=== PATIENT | male | born 1965 ===

== ENCOUNTER 2021-08-15 13:09 | Emergency (ER) | payer MEDICAID, SELFPAY ==
[2021-08-15 13:17] VITALS: BP 138/91; PULSE 82; RESP 18; TEMP 36.3; O2SAT 93; BMI 26.2
--- NOTE | 2021-08-15 13:35 | ECG_ITS ---
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 Measurements Intervals [place] Rate: 77 P: 73 HI: 188 QRS: 4 QRSD: 105 T: 67 QT: 379 QTc: 430 Interpretive Statements SINUS RHYTHM NONSPECIFIC T-WAVE ABNORMALITY No previous ECG available for comparison Electronically Signed On 08-16-2021 17:43:18 INDUSTRY CONSULTANT by Robby Canales M.D. [id number]
[2021-08-15 14:26] LABS: Basophils % 0.2 %; Eosinophils # 0.1 10^3/uL (0.0-0.8); Eosinophils % 0.9 %; Hematocrit 49.7 % (42.0-52.0); Hemoglobin 16.4 g/dL (11.7-16.6); Lymphocytes # 1.7 10^3/uL (0.8-4.8); Lymphocytes % 17.4 %; Mean Corpuscular Hemoglobin 28.6 pg (28.0-34.0); Mean Corpuscular Volume 86.7 fl (80-94); Mean Platelet Volume 9.3 fL (7.4-10.4); Monocytes # 0.7 10^3/uL (0.2-0.9); Monocytes % 6.8 %; Neutrophils # 7.36 10^3/uL (1.8-7.7); Neutrophils % 74.2 %; Nucleated Red Blood Cells % 0 %; Platelet Count 206 10^3/cmm (130-400); Red Blood Count 5.73 10^6/uL (4.1-5.3); Red Cell Distribution Width 12.5 % (12.1-15.1); White Blood Count 9.9 10^3/uL (4.0-10.0)
[2021-08-15 15:03] LABS: Alanine Aminotransferase 35 U/L (0-41); Albumin Level 4.5 g/dL (3.5-5.2); Alkaline Phosphatase 81 IU/L (40-130); Anion Gap 17.8 (5-19); Aspartate Amino Transferase 24 U/L (0-40); Blood Urea Nitrogen 7 mg/dL (6-20); Calcium 8.8 mg/dL (8.5-10.5); Carbon Dioxide 23 mmol/L (22-29); Chloride 100 mmol/L (98-107); Globulin 2.8 g/dL (1.3-4.6); Glomerular Filtration Rate 115.8 mL/min (90-130); Glucose 104 mg/dL (65-115); Osmolality Calculated 282 mOsm/kg (285-295); Potassium 3.8 mmol/L (3.5-5.1); Sodium 137 mmol/L (136-145); Total Bilirubin 0.7 mg/dL (0.15-1.2); Total Protein 7.3 g/dL (6.6-8.7)
[2021-08-15 15:05] LABS: Troponin(5th) Baseline 6 ng/L (0-15)
--- NOTE | 2021-08-15 15:05 | W.ED.WEAKNES ---
Documented by User: ERASMO Garcia 08/15/21 15:06 HPI - Weakness General: Chief complaint: Weakness Stated complaint: groin pain Time Seen by Provider: 08/15/21 18:18 History of Present Illness: HPI Narrative: Patient here for weakness and possible 2 episodes of syncope over this past couple days. I did speak with the son who is his material requisitioner because patient is do not speak [place]. Patient did not appear in acute distress. They were concerned about inguinal hernia which he has. But that is not hurting. Denies any fever chills shortness of breath chest pains. Course Vital Signs: Vital signs: Vital Signs Temperature 97.3 F L 08/15/21 13:17 Pulse Rate 76 08/15/21 20:16 Respiratory Rate 17 08/15/21 19:00 Blood Pressure 145/78 08/15/21 20:16 Pulse Oximetry 98 08/15/21 20:16 MDM - Weakness MDM Narrative: Medical decision making narrative: Brief history and physical exam was performed as part of the triage process. Due to current ED wait time patient will be placed in waiting room until a room becomes available. Explained to patient he/she will be seen in order of severity. Patient is currently safe to wait in the waiting room until we can get them placed. Patient informed that if condition worsens at any time to please let the front desk supervisor know. Lab Data: Labs: Lab Results 08/15/21 08/15/21 08/15/21 13:55 13:55 13:55 WBC 9.9 10^3/uL 10^3/ uL (4.0-10.0) RBC 5.73 10^6/uL H 10 ^6/uL (4.1-5.3) Hgb 16.4 g/dL g/dL (11.7-16.6) Hct 49.7 % % (42.0-52.0) MCV 86.7 fl fl (80-94) MCH 28.6 pg pg (28.0-34.0) MCHC 33.0 g/dL g/dL (30.0-36.0) RDW 12.5 % % (12.1-15.1) Plt Count 206 10^3/cmm 10^3 /cmm (130-400) MPV 9.3 fL fL (7.4-10.4) Neut % (Auto) 74.2 % % Lymph % (Auto) 17.4 % % Bartholomew % (Auto) 6.8 % % Eos % (Auto) 0.9 % % Baso % (Auto) 0.2 % % Neut # (Auto) 7.36 10^3/uL 10^3 /uL (1.8-7.7) Lymph # (Auto) 1.7 10^3/uL 10^3/ uL (0.8-4.8) Bartholomew # (Auto) 0.7 10^3/uL 10^3/ uL (0.2-0.9) Eos # (Auto) 0.1 10^3/uL 10^3/ uL (0.0-0.8) Baso # (Auto) 0.0 10^3/uL 10^3/ uL (0.0-0.1) Nucleated RBC % (a uto) 0 % % Nucleated RBCs # 0.0 /100WBC /100W BC D-Dimer 0.40 ug/mIFEU ug/ mIFEU (0-0.59) Sodium 137 mmol/L mmol/L (136-145) Potassium 3.8 mmol/L mmol/L (3.5-5.1) Chloride 100 mmol/L mmol/L (98-107) Carbon Dioxide 23 mmol/L mmol/L (22-29) Anion Gap 17.8 (5-19) BUN 7 mg/dL mg/dL (6-20) Creatinine 0.7 mg/dL mg/dL (0.7-1.2) GFR Calculation 115.8 mL/min mL/m in (90-130) Glucose 104 mg/dL mg/dL (65-115) Calculated Osmolal ity 282 mOsm/kg L mOs m/kg (285-295) Calcium 8.8 mg/dL mg/dL (8.5-10.5) Total Bilirubin 0.7 mg/dL mg/dL (0.15-1.2) AST 24 U/L U/L (0-40) ALT 35 U/L U/L (0-41) Alkaline Phosphata se 81 IU/L IU/L (40-130) Troponin T Baselin e Troponin T 120 Min standing [place] Delta Troponin T Troponin T Hi Sens 6Hr Troponin T Hi Sens 6Hr Delta Total Protein 7.3 g/dL g/dL (6.6-8.7) Albumin 4.5 g/dL g/dL (3.5-5.2) Globulin 2.8 g/dL g/dL (1.3-4.6) Urine Color Urine Appearance Urine pH Ur Specific Gravit y Urine Protein Urine Glucose (UA) Urine Ketones Urine Blood Urine Nitrate Urine Bilirubin Urine Urobilinogen Ur Leukocyte Fariba ase 08/15/21 08/15/21 08/15/21 13:55 16:32 18:30 WBC RBC Hgb Hct MCV MCH MCHC RDW Plt Count MPV Neut % (Auto) Lymph % (Auto) Bartholomew % (Auto) Eos % (Auto) Baso % (Auto) Neut # (Auto) Lymph # (Auto) Bartholomew # (Auto) Eos # (Auto) Baso # (Auto) Nucleated RBC % (a uto) Nucleated RBCs # D-Dimer Sodium Potassium Chloride Carbon Dioxide Anion Gap BUN Creatinine GFR Calculation Glucose Calculated Osmolal ity Calcium Total Bilirubin AST ALT Alkaline Phosphata se Troponin T Baselin e 6 ng/L ng/L (0-15) Troponin T 120 Min [place] 6.78 ng/L ng/L (0-15) Delta Troponin T 0.78 ABS# ABS# (0-10) Troponin T Hi Sens 6Hr 6.00 ng/L ng/L (0-15) Troponin T Hi Sens 6Hr Delta 0 ng/L ng/L (0-12) Total Protein Albumin Globulin Urine Color Urine Appearance Urine pH Ur Specific Gravit y Urine Protein Urine Glucose (UA) Urine Ketones Urine Blood Urine Nitrate Urine Bilirubin Urine Urobilinogen Ur Leukocyte Fariba ase 08/15/21 19:18 WBC RBC Hgb Hct MCV MCH MCHC RDW Plt Count MPV Neut % (Auto) Lymph % (Auto) Bartholomew % (Auto) Eos % (Auto) Baso % (Auto) Neut # (Auto) Lymph # (Auto) Bartholomew # (Auto) Eos # (Auto) Baso # (Auto) Nucleated RBC % (a uto) Nucleated RBCs # D-Dimer Sodium Potassium Chloride Carbon Dioxide Anion Gap BUN Creatinine GFR Calculation Glucose Calculated Osmolal ity Calcium Total Bilirubin AST ALT Alkaline Phosphata se Troponin T Baselin e Troponin T 120 Min standing [place] Delta Troponin T Troponin T Hi Sens 6Hr Troponin T Hi Sens 6Hr Delta Total Protein Albumin Globulin Urine Color Yellow (Yellow) Urine Appearance Clear (CLEAR) Urine pH 5 (5-7) Ur Specific Gravit y 1.025 (1.005-1.030) Urine Protein Neg (Negative) Urine Glucose (UA) Norm (Normal) Urine Ketones Negative (Negative) Urine Blood Neg (Negative) Urine Nitrate Negative (Negative) Urine Bilirubin Neg (Negative) Urine Urobilinogen 1 mg/dL H mg/dL (Negative) Ur Leukocyte Fariba ase Negative (Negative) Discharge Plan Discharge Patient Disposition: Home Clinical Impression: Weakness Condition: Stable Discharge Orders: Discharge ED (Routine); Ordered 08/15/21 Ordered By: Rafy Cheema Referrals: Dusty Short MD [Primary Care Provider] - 1-3 days Discharge Diet: Advance as tolerated Discharge Activity: Increase activity as tolerated Patient Instructions: Weakness (ED) Activity Restrictions/Additional Instructions: Case management has been asked to make an appointment with her primary care physician for you. You should hear from them by the end of the week. You will also hear from us if your COVID-19 test turns positive. Return for worsening shortness of breath, chest discomfort, fever greater than 100, any other concerning symptoms. Coding Level of Care Code ED Filler Mixer for Chg Fwd Exam Comprehensive Documented by User: Rafy Cheema DO 08/15/21 20:32 HPI - Weakness General: Chief complaint: Weakness Stated complaint: groin pain Time Seen by Provider: 08/15/21 18:18 History of Present Illness: HPI Narrative: See above MD Complaint: generalized weakness Onset (ago): day(s) (3) Duration: progressively worsening Location: generalized Migration: none Severity: moderate Relieving factors: none Exacerbating factors: morning Associated symptoms: Reports syncope (2 episodes); Denies chest pain, chills, confusion, decreased appetite, fever(s), headache(s), nausea, short of breath or vomiting Review of Systems Const: Denies: fever(s) or chills Card: Reports: syncope (2 episodes); Denies: chest pain GI: Denies: nausea or vomiting Neuro: Denies: headache(s) or confusion Physical Exam Const: COMMON NORMALS: patient oriented x3 and alert GENERAL APPEARANCE: cooperative HENMT: COMMON NORMALS: normocephalic and atraumatic HEAD & SCALP: normocephalic and atraumatic Eye: COMMON NORMALS: Equal, round and reactive pupils present and EOMs intact bilaterally PUPIL: Yes Equal, round and reactive pupils present Chest: COMMONS NORMALS: normal inspection of the chest Resp: COMMON NORMALS: normal respiratory effort, No use of accessory muscles and clear to auscultation bilaterally AUSCULTATION: clear to auscultation bilaterally Cardio: COMMON NORMALS: regular rate and regular rhythm RATE: regular rate RHYTHM: regular rhythm GI: COMMON NORMALS: Normal to inspection, nondistended, normoactive bowel sounds present and Soft to palpation PALPATION: Yes Soft to palpation Extremity: COMMON NORMALS: normal to inspection Neuro: COMMON NORMALS: patient oriented x3 SENSORIUM/ORIENTATION: Yes alert Course Vital Signs: Vital signs: Vital Signs Temperature 97.3 F L 08/15/21 13:17 Pulse Rate 76 08/15/21 20:16 Respiratory Rate 17 08/15/21 19:00 Blood Pressure 145/78 08/15/21 20:16 Pulse Oximetry 98 08/15/21 20:16 MDM - Weakness MDM Narrative: Medical decision making narrative: Chest x-ray shows minimal atelectasis bilaterally. Saturations have been normal. He is nontachycardic. Blood pressure is 145/90 CBC is normal. BMP is essentially normal. D-dimer is negative. A full spectrum of troponins has been done out to 6 hours with no change. No cause ascertained of generalized weakness. We will allow him home. He does need a PCP, which we will ask case management to help out with. Patient's son states the patient is refusing COVID-19 testing. Lab Data: Labs: Lab Results 08/15/21 08/15/21 08/15/21 13:55 13:55 13:55 WBC 9.9 10^3/uL 10^3/ uL (4.0-10.0) RBC 5.73 10^6/uL H 10 ^6/uL (4.1-5.3) Hgb 16.4 g/dL g/dL (11.7-16.6) Hct 49.7 % % (42.0-52.0) MCV 86.7 fl fl (80-94) MCH 28.6 pg pg (28.0-34.0) MCHC 33.0 g/dL g/dL (30.0-36.0) RDW 12.5 % % (12.1-15.1) Plt Count 206 10^3/cmm 10^3 /cmm (130-400) MPV 9.3 fL fL (7.4-10.4) Neut % (Auto) 74.2 % % Lymph % (Auto) 17.4 % % Bartholomew % (Auto) 6.8 % % Eos % (Auto) 0.9 % % Baso % (Auto) 0.2 % % Neut # (Auto) 7.36 10^3/uL 10^3 /uL (1.8-7.7) Lymph # (Auto) 1.7 10^3/uL 10^3/ uL (0.8-4.8) Bartholomew # (Auto) 0.7 10^3/uL 10^3/ uL (0.2-0.9) Eos # (Auto) 0.1 10^3/uL 10^3/ uL (0.0-0.8) Baso # (Auto) 0.0 10^3/uL 10^3/ uL (0.0-0.1) Nucleated RBC % (a uto) 0 % % Nucleated RBCs # 0.0 /100WBC /100W BC D-Dimer 0.40 ug/mIFEU ug/ mIFEU (0-0.59) Sodium 137 mmol/L mmol/L (136-145) Potassium 3.8 mmol/L mmol/L (3.5-5.1) Chloride 100 mmol/L mmol/L (98-107) Carbon Dioxide 23 mmol/L mmol/L (22-29) Anion Gap 17.8 (5-19) BUN 7 mg/dL mg/dL (6-20) Creatinine 0.7 mg/dL mg/dL (0.7-1.2) GFR Calculation 115.8 mL/min mL/m in (90-130) Glucose 104 mg/dL mg/dL (65-115) Calculated Osmolal ity 282 mOsm/kg L mOs m/kg (285-295) Calcium 8.8 mg/dL mg/dL (8.5-10.5) Total Bilirubin 0.7 mg/dL mg/dL (0.15-1.2) AST 24 U/L U/L (0-40) ALT 35 U/L U/L (0-41) Alkaline Phosphata se 81 IU/L IU/L (40-130) Troponin T Baselin e Troponin T 120 Min standing [place] Delta Troponin T Troponin T Hi Sens 6Hr Troponin T Hi Sens 6Hr Delta Total Protein 7.3 g/dL g/dL (6.6-8.7) Albumin 4.5 g/dL g/dL (3.5-5.2) Globulin 2.8 g/dL g/dL (1.3-4.6) Urine Color Urine Appearance Urine pH Ur Specific Gravit y Urine Protein Urine Glucose (UA) Urine Ketones Urine Blood Urine Nitrate Urine Bilirubin Urine Urobilinogen Ur Leukocyte Fariba ase 08/15/21 08/15/21 08/15/21 13:55 16:32 18:30 WBC RBC Hgb Hct MCV MCH MCHC RDW Plt Count MPV Neut % (Auto) Lymph % (Auto) Bartholomew % (Auto) Eos % (Auto) Baso % (Auto) Neut # (Auto) Lymph # (Auto) Bartholomew # (Auto) Eos # (Auto) Baso # (Auto) Nucleated RBC % (a uto) Nucleated RBCs # D-Dimer Sodium Potassium Chloride Carbon Dioxide Anion Gap BUN Creatinine GFR Calculation Glucose Calculated Osmolal ity Calcium Total Bilirubin AST ALT Alkaline Phosphata se Troponin T Baselin e 6 ng/L ng/L (0-15) Troponin T 120 Min [place] 6.78 ng/L ng/L (0-15) Delta Troponin T 0.78 ABS# ABS# (0-10) Troponin T Hi Sens 6Hr 6.00 ng/L ng/L (0-15) Troponin T Hi Sens 6Hr Delta 0 ng/L ng/L (0-12) Total Protein Albumin Globulin Urine Color Urine Appearance Urine pH Ur Specific Gravit y Urine Protein Urine Glucose (UA) Urine Ketones Urine Blood Urine Nitrate Urine Bilirubin Urine Urobilinogen Ur Leukocyte Fariba ase 08/15/21 19:18 WBC RBC Hgb Hct MCV MCH MCHC RDW Plt Count MPV Neut % (Auto) Lymph % (Auto) Bartholomew % (Auto) Eos % (Auto) Baso % (Auto) Neut # (Auto) Lymph # (Auto) Bartholomew # (Auto) Eos # (Auto) Baso # (Auto) Nucleated RBC % (a uto) Nucleated RBCs # D-Dimer Sodium Potassium Chloride Carbon Dioxide Anion Gap BUN Creatinine GFR Calculation Glucose Calculated Osmolal ity Calcium Total Bilirubin AST ALT Alkaline Phosphata se Troponin T Baselin e Troponin T 120 Min [place] Delta Troponin T Troponin T Hi Sens 6Hr Troponin T Hi Sens 6Hr Delta Total Protein Albumin Globulin Urine Color Yellow (Yellow) Urine Appearance Clear (CLEAR) Urine pH 5 (5-7) Ur Specific Gravit y 1.025 (1.005-1.030) Urine Protein Neg (Negative) Urine Glucose (UA) Norm (Normal) Urine Ketones Negative (Negative) Urine Blood Neg (Negative) Urine Nitrate Negative (Negative) Urine Bilirubin Neg (Negative) Urine Urobilinogen 1 mg/dL H mg/dL (Negative) Ur Leukocyte Fariba ase Negative (Negative) Discharge Plan Discharge Patient Disposition: Home Clinical Impression: Weakness Condition: Stable Discharge Orders: Discharge ED (Routine); Ordered 08/15/21 Ordered By: Rafy Cheema Referrals: Dusty Short MD [Primary Care Provider] - 1-3 days Discharge Diet: Advance as tolerated Discharge Activity: Increase activity as tolerated Patient Instructions: Weakness (ED) Activity Restrictions/Additional Instructions: Case management has been asked to make an appointment with her primary care physician for you. You should hear from them by the end of the week. You will also hear from us if your COVID-19 test turns positive. Return for worsening shortness of breath, chest discomfort, fever greater than 100, any other concerning symptoms. Coding Level of Care Code ED Filler Mixer for Chg Fwd Exam Comprehensive
[2021-08-15 17:08] LABS: Troponin 5 2HR 6.78 ng/L (0-15); Troponin 5 2HR Delta 0.78 ABS# (0-10)
[2021-08-15 18:22] VITALS: BP 144/96; PULSE 83; O2SAT 98
--- NOTE | 2021-08-15 18:51 | XRR_ITS ---
PROCEDURE INFORMATION: Exam: XR Chest Exam date and time: 08/15/2021 6:51 PM Age: 56 years old Clinical indication: Other: Weakness TECHNIQUE: Imaging protocol: XR of the chest. Views: 1 view. COMPARISON: No relevant prior studies available. FINDINGS: Lungs: Bibasilar atelectasis versus minimal infiltrate. Pleural spaces: Unremarkable. No pleural effusion. No pneumothorax. Heart/Mediastinum: Unremarkable. No cardiomegaly. Bones/joints: Unremarkable. XR/XR chest 1V portable [id number] IMPRESSION: Bibasilar atelectasis versus minimal infiltrate.
[2021-08-15 19:00] VITALS: BP 121/97; PULSE 77; RESP 17; O2SAT 95
[2021-08-15 19:20] LABS: Add Urine Microscopic? NO; Charge for UA Resulting for Rev
[2021-08-15 19:26] LABS: Troponin 5 6HR Delta 0 ng/L (0-12)
[2021-08-15 19:36] LABS: Blood Urine Neg (Negative); Glucose Urine UA Norm (Normal); Ketones Urine Negative (Negative); Protein Urine Neg (Negative); Specific Gravity, Urine 1.025 (1.005-1.030); Urine Appearance Clear (CLEAR); Urine Color Yellow (Yellow); pH Urine 5 (5-7)
[2021-08-15 19:37] LABS: Bilirubin Urine Neg (Negative); Leukocyte Esterase Urine Negative (Negative); Nitrate Urine Negative (Negative); Urobilinogen Urine 1 mg/dL (Negative)
[2021-08-15 20:16] VITALS: BP 145/78; PULSE 76; O2SAT 98
--- NOTE | 2021-08-25 15:01 | DCPLANNER ---
insurance manager had message to speak with patient about getting established with a primary care physician. insurance manager unable to speak with anyone at this time.
== END 2021-08-15 20:19 | disposition home or self-care (01) ==
PROVIDERS: Nurse Practitioner Family; Emergency Provider Emergency Medicine; PCP Family Medicine
DX: R53.1 Weakness (principal)
CPT/HCPCS: 71045; 80053; 81003; 84484; 85025; 85378; 93005; 99284

== ENCOUNTER 2022-01-30 07:27 | Outpatient (CLI) | payer BC, MEDICAID, SELFPAY ==
[2022-01-30 08:01] VITALS: BMI 25.0
--- NOTE | 2022-01-30 08:18 | PC.NURSE ---
solvent recoverer called and test was explained to pt. pt stated he had no questions at this time. will call solvent recoverer back when stress test is to be completed.
--- NOTE | 2022-01-30 08:22 | ECG_ITS ---
[facility] Test Date: 2022-01-30 Pat Name: Arjun Carlson Department: Room: Gender: Male Guest Service Host: Lory Gutierrez : 1965 Requested By: Maura Stevenson Order Number: [id number] Margi MD: Bharath Jean Baptiste M.D. Interpretive Statements NAME OF STUDY: LEXISCAN SESTAMIBI STRESS TEST INDICATION: [sob] Procedure: At the baseline, the blood pressure was 128/82 mmHg with a heart rate of 67 bpm. The electrocardiogram showed normal sinus rhythm, normal axis with normal ST and T's. The Lexiscan was infused over a period of 20 seconds. A total of 0.4 mg of Lexiscan was infused. The stress phase was continued for a total of 5 minutes. Heart rate was at the end of stress phase was 84 bpm and a blood pressure of 138/86 mmHg. The EKG at the peak infusion revealed since normal sinus rhythm with no significant ST-T wave changes. Sestamibi was injected 20 seconds after the Lexiscan infusion. Blood pressure at the end of recovery phase was 141/83 mmHg with a heart rate of 80 bpm. Conclusion: 1. Normal EKG response to Lexiscan infusion 2. No Lexiscan induced chest pain or cardiac arrhythmia. 3. Normal blood pressure and heart rate response. 4. Sestamibi/sestamibi perfusion scan pending; see separate report. Electronically Signed On 02-17-2022 12:01:07 CDT by Bharath Jean Baptiste M.D. [id number]
--- NOTE | 2022-01-30 08:22 | NMCV_ITS ---
NM amberly perf SPECT r/s* [id number] Arjun Carlson Age: 56 Gender: M : 1965 Exam Date: 01/30/2022 09:09 Ordering Phys: Maura StevensonP LIVESTOCK INSPECTOR Technologist: JULIA Bhagat Exam Location: [facility] Indications: SHORTNESS OF BREATH STRESS TEST Please see separate stress test report in [facility] for full findings IMAGE PROTOCOL Rest/Stress 1 Lexiscan Day Radiopharmaceutical Dose (mCi) Administration Site Administered by Rest: Tc-99m 11.0 IV JULIA Gonzalez Sestamibi Stress:Tc-99m 33.0 IV JULIA Gonzalez Sestamibi Rest: 30-Jan-2022 60 Discovery 630 Stress: 30-Jan-2022 30 Discovery 630 0.4mg Lexiscan. Images obtained in supine and prone position. SPECT RESULTS Technical Quality: Excellent Raw Data Analysis: Normal Image Corrections: No attenuation or motion correction applied Summed Stress Score: 2 Summed Rest Score: 1 Summed Difference Score: 2 PERFUSION FINDINGS There is a small in size, fixed perfusion defect seen in the inferior wall. This can be small sized prior infarct in the RCA territroy vs attenuation artifact. No evidence of ischemia seen FUNCTIONAL RESULTS (calculated via Gated SPECT) Stress Image LV EF (%): 52 Stress EDV (mL):137 TID: 1.01 Stress ESV (mL):66 FUNCTIONAL FINDINGS: There is normal left ventricular systolic function. IMPRESSIONS 1. Small sized, fixed perfusion defect seen in the RCA territory. This is likely secondary to small sized prior infarct vs attenuation artifact. No evidence of ischemia 2. LV systolic function is normal Bharath Jean Baptiste MD (Electronically Signed) Final Date: 01 February 2022 12:43 S
[2022-01-30] MEDS: regadenoson 0.4 Mg/5 ml Syringe IVP (09:41)
[2022-01-30 10:00] VITALS: BP 141/83; PULSE 78
--- NOTE | 2022-01-30 10:03 | PC.NURSE ---
certified court interpreter called back with help during stress test. no problems. pt stated he didnt have any questions before he left
== END 2022-01-30 07:28 | disposition home or self-care (01) ==
LOC: CDL 07:33
PROVIDERS: Visit Provider Nurse Practitioner Family
DX: R06.02 Shortness of breath (principal)
CPT/HCPCS: 78452; 93017; A9500; J2785

== ENCOUNTER → 2022-03-07 12:26 | Outpatient (BNVA) | payer BC, MEDICAID, SELFPAY | PROVIDERS: Visit Provider Internal Medicine | DX: R07.89 Other chest pain (principal); I10 Essential (primary) hypertension | CPT/HCPCS: 99203; 99204 ==

== ENCOUNTER 2023-11-07 18:27 | Emergency (ER) | payer BC, MEDICAID, SELFPAY ==
[2023-11-07 18:34] VITALS: BP 157/97; PULSE 81; TEMP 36.8; O2SAT 91; BMI 31.8
--- NOTE | 2023-11-07 19:01 | PC.NURSE ---
Wound noted to LLE cleaned with povidone-iodine and sterile water, no foreign objects visualized prior to sutures.
[2023-11-07 19:03] VITALS: BP 142/87; PULSE 79; RESP 15; O2SAT 90
[2023-11-07] MEDS: tetanus-dipt-pertussis 0.5 mL SDV IM (19:05)
[2023-11-07] MEDS: lidocaine 1% INJ 10 mL (per mL) INTRADERMA (19:07)
[2023-11-07] MEDS: cefTRIAXone 1,000 MG in water for injection-sterile 2.1 ML 1 MG IM (19:07)
--- NOTE | 2023-11-07 19:19 | ED_ITS ---
HPI - Wound/Laceration General: Chief Complaint: Wound/Laceration Stated Complaint: Right leg Lac Time Seen by Provider: 11/07/23 18:34 History of Present Illness: Patient cut the inside of his left anterior carvajal with a chainsaw. Patient has sign language translator at bedside. Bleeding is controlled at this time. Patient needs his tetanus shot. Review of Systems General: Reports: 10 or more systems reviewed and unremarkable except in HPI and below PFSH ED PFSH: Medical History HTN (hypertension) Social History Smoking and tobacco/nicotine status: never used tobacco/nicotine Physical Exam Const: COMMON NORMALS: no acute distress, average body habitus, patient oriented x3, no limitations, healthy appearing, alert and well nourished HENMT: COMMON NORMALS: normocephalic, atraumatic, hearing grossly normal bilaterally, external ears normal, Normal external nose present, moist oral mucous membranes and oropharynx normal HEAD & SCALP: normocephalic and atraumatic NOSE: Normal external nose present EXTERNAL EAR: Yes external ears normal Neck/C-Spine: COMMON NORMALS: no JVD Chest: COMMONS NORMALS: normal inspection of the chest and normal palpation of entire chest wall Resp: COMMON NORMALS: normal respiratory effort, No retractions, No use of accessory muscles and clear to auscultation bilaterally AUSCULTATION: clear to auscultation bilaterally Cardio: COMMON NORMALS: no JVD, regular rate, regular rhythm, S1 normal heart sound present, S2 normal heart sound present, No gallops present (Cardio), No clicks present (Cardio), No murmurs present (Cardio) and No rub (Cardio) RATE: regular rate RHYTHM: regular rhythm HEART SOUNDS: S1 normal heart sound present and S2 normal heart sound present GI: COMMON NORMALS: Normal to inspection, nondistended, normoactive bowel sounds present, Soft to palpation, non-tender, No hepatosplenomegaly present and no masses PALPATION: Yes Soft to palpation and Yes No hepatosplenomegaly present Extremity: NARRATIVE EXTREMITY EXAM: Left anterior carvajal large 9 cm laceration goes into the muscle. Bleeding is controlled. Sensation distal to the wound is intact. Tendons are intact. Neuro: COMMON NORMALS: patient oriented x3 SENSORIUM/ORIENTATION: Yes alert Procedures Laceration Laceration 1: Site: lower extremity (Left anterior carvajal) Side (If applicable): left Size (cm): 9 Description: flap, irregular and contaminated Depth: involves muscle layer Local Anesthetic: lidocaine 1% Amount of anesthesia used (mL): 10 Pre-repair: wound explored, irrigated extensively (1000 mL saline), deep structures intact (Laceration was into the muscle) and wound margins revised Skin layer closed with: nylon Size (cm): 3-0 Number of sutures: 10 Technique: simple, interrupted Technique: simple, interrupted Muscle layer closed with: vicryl Size: 3-0 Number of sutures: 8 Course Vital Signs: Vital signs: Vital Signs Temperature 98.3 F 11/07/23 18:34 Pulse Rate 79 11/07/23 19:38 Respiratory Rate 15 11/07/23 19:38 Blood Pressure 142/87 11/07/23 19:38 Pulse Oximetry 90 11/07/23 19:38 Oxygen Delivery Me thod Room Air 11/07/23 18:34 MDM - Wound/Laceration Medical Decision Making Patient hit his leg with a chainsaw. Patient had a bout of 3 inch gash in his left anterior medial carvajal this was extensively irrigated with saline and Betadine as well as vigorously removed debris with manual extraction. Once wound was felt clean wound was closed up the muscle was closed up with 3-0 Vicryl for the exterior was closed up with 3-0 nylon all in interrupted fashion with no complications. Patient underwent the procedure with well. Patient was given 1 g of ceftriaxone and patient be discharged home with a prescription for [place] and hydrocodone. Differential Diagnosis Likely laceration Medical Records I reviewed the patient's medical records. Lab Data I reviewed the patient's lab results. No radiology studies performed this visit Discharge Plan Discharge Patient Disposition: Home Clinical Impression: Laceration Condition: Stable Prescriptions: New hydrocodone-acetaminophen 5-325 mg tablet 1 tab PO Q6H PRN (Reason: pain) Qty: 14 0RF cephalexin 500 mg capsule 500 mg PO Q6H 7 Days Qty: 28 0RF Discharge Orders: Discharge ED (Routine); Ordered 11/07/23 Ordered By: Mason Salas Patient Instructions: Laceration (DC), Opioid Safety, Pain Management Activity Restrictions/Additional Instructions: Please keep laceration clean and dry. Change bandage as necessary. For every bandage change please place a thin layer of triple antibiotic ointment. Take all your medicine as directed this includes your pain medicine and your antibiotics. Please follow-up with somebody in approximately 14 days for possible reevaluation and suture removal. If you have any issues in the meantime please feel free to return to the ER. Coding Level of Care Code ED Cotton Weigher Operator for Patsy Domínguez
--- NOTE | 2023-11-07 19:19 | PC.NURSE ---
pt laceration [address] length[address] per Dr[address] Salas 8 internal sutures, and 10 external sutures. Wound is clean and dry and wrapped with telfa, gauze, and kerlix.
[2023-11-07 19:38] VITALS: BP 142/87; PULSE 79; RESP 15; O2SAT 90
[2023-11-07] MEDS: neomycin-poly-bacitracin oint 0.9 gm Pkt 1 APPLIC TOPICAL (19:38)
== END 2023-11-07 19:47 | disposition home or self-care (01) ==
PROVIDERS: Emergency Provider Emergency Medicine
DX: S81.811A Laceration without foreign body, right lower leg, initial encounter (principal); W29.3XXA Contact with powered garden and outdoor hand tools and machinery, initial encounter; I10 Essential (primary) hypertension; Z23 Encounter for immunization; S86.922A Laceration of unspecified muscle(s) and tendon(s) at lower leg level, left leg, initial encounter
CPT/HCPCS: 12034; 13121; 13122; 90715; 96372; 99284; J0696

== ENCOUNTER 2023-12-10 14:32 | Emergency (ER) | payer BC, MEDICAID, SELFPAY ==
[2023-12-10 14:58] VITALS: BP 127/82; PULSE 80; RESP 18; TEMP 36.6; O2SAT 95
--- NOTE | 2023-12-10 15:15 | XRR_ITS ---
PROCEDURE INFORMATION: Exam: XR Left Tibia and Fibula Exam date and time: 12/10/2023 3:17 PM Age: 58 years old Clinical indication: Condition or disease; Other: Wound TECHNIQUE: Imaging protocol: Radiologic exam of the left tibia and fibula. Views: 2 views. COMPARISON: No relevant prior studies available. FINDINGS: Bones/joints: Mild tricompartmental osteoarthritic change of the left knee. Prominent loose body within the left knee joint space. The left tibia and fibula are intact. No fractures are identified. Soft tissues: There is edema in the soft tissues of the left lower leg. No gas in the soft tissues of the left lower leg. XR/XR tibia fibula LT 2V [id number] IMPRESSION: 1. Edema in the soft tissues of the left lower leg but no evidence of gas in the soft tissues 2. No evidence of a left tib-fib fracture 3. Mild tricompartmental osteoarthritis of the left knee
[2023-12-10 15:16] VITALS: BP 129/81; PULSE 85; RESP 16; O2SAT 93
--- NOTE | 2023-12-10 15:16 | ED_ITS ---
HPI - Wound/Laceration General: Chief Complaint: Wound/Laceration Stated Complaint: left foot pain Time Seen by Provider: 12/10/23 14:42 Source: patient and family Mode of arrival: ambulatory Limitations: no limitations History of Present Illness: Patient is a 58-year-old male who presents to ED today for evaluation of a left lower leg wound. Patient states on 11/06 he accidentally lacerated his left lower leg using a chainsaw. Patient was seen here in the emergency department and had a multilayer laceration closure performed. He was placed on antibiotics following this. Patient was seen at the walk-in clinic approximately 10 days later for suture removal. Wound at that time appeared to be healing normally with normal granulation tissue/eschar formation. Patient states since that visit he has felt like the wound has began draining and has noticed some redness surrounding that and is concerned for infection. He is not a diabetic or immunocompromised. No fevers or systemic symptoms. Onset (ago): day(s) Extremity Location: Left: lower leg Place: home Patient tetanus UTD: Yes Context: accidental Associated symptoms: Reports no associated symptoms; Denies chills or fever(s) Review of Systems Const: Denies: fever(s), chills, body aches, fatigue or malaise Skin/Breast: Reports: erythema and other (healing laceration L anterior lower leg) Neuro: Denies: numbness in extremities or sensory changes FOR[facility], [facility] ED PFSH: Medical History HTN (hypertension) Social History Smoking and tobacco/nicotine status: never used tobacco/nicotine Physical Exam Const: COMMON NORMALS: no acute distress, average body habitus, no limitations, healthy appearing, alert and well nourished Extremity: COMMON NORMALS: full ROM and capillary refill normal GENERAL: Yes normal exam except as noted LEFT LOWER EXTREMITY: Yes lower leg OTHER: patient has a large healing laceration to L anterior lower leg; wound is unfortunately coated in some type of herbal grass root supplement that he believes aids in healing and infection prevention; I cannot elicit any purulent material from the wound-some scant serosanguineous drainage; he has some minor erythema surrounding the wound but the outline of the erythema matches the adhesive bandage he had on so I question whether some of this is more allergic/irritative; no streaking or obvious cellulitic changes Neuro: SENSORIUM/ORIENTATION: Yes alert Course Vital Signs: Vital signs: Vital Signs Temperature 97.9 F 12/10/23 14:58 Pulse Rate 89 12/10/23 15:37 Respiratory Rate 16 12/10/23 15:16 Blood Pressure 130/79 12/10/23 15:37 Pulse Oximetry 94 12/10/23 15:37 Oxygen Delivery Me thod Room Air 12/10/23 15:16 MDM - Wound/Laceration Medical Decision Making XR negative. He is not tachycardic or febrile. I do not feel labs would overall change my management at this time. No concern clinically for osteomyelitis, necrotizing fasciitis, deep space abscess, or compartment syndrome. Entire wound assessment was difficult given the fact that it was slathered in some type of grass root herbal supplement. I am not convinced that the erythema surrounding the wound is cellulitis concerning more allergic/irritative dermatitis from his bandage. Nonetheless I will cover him with clindamycin. Strict return ED precautions given to which they verbalized understanding. XR interpretation done by ED provider, pending radiology final review Discharge Plan Discharge Patient Disposition: Home Clinical Impression: Encounter for evaluation of wound Condition: Stable Prescriptions: New clindamycin HCl 300 mg capsule 300 mg PO Q6H 7 Days Qty: 28 0RF Discharge Orders: Discharge ED (Routine); Ordered 12/10/23 Ordered By: Lucy Easton Coding Level of Care Code ED Wall Steamer for Patsy Domínguez
[2023-12-10] MEDS: clindamycin 150 mg Capsule 300 MG PO (15:30)
[2023-12-10 15:37] VITALS: BP 130/79; PULSE 89; O2SAT 94
== END 2023-12-10 15:42 | disposition home or self-care (01) ==
PROVIDERS: Emergency Provider Physician Assistant
DX: S81.812A Laceration without foreign body, left lower leg, initial encounter (principal); I10 Essential (primary) hypertension; W29.3XXA Contact with powered garden and outdoor hand tools and machinery, initial encounter
CPT/HCPCS: 73590; 99283